=== PATIENT | female | born 1990 | race Caucasian/White ===

== ENCOUNTER 2017-05-11 07:39 | Emergency (ER) | payer MEDICAID, OTHER ==
[2017-05-11 07:39] VITALS: BMI 27.6
[2017-05-11 07:58] VITALS: O2SAT 100
--- NOTE | 2017-05-11 09:08 | C.PDOC ---
History Of Present Illness 27-year-old female, presents to the emergency department with complaints of an allergic reaction. Patient states she has hives diffusely, all over body for the past week. Patient has had similar in the past. Unsure what she is allergic to. Time Seen by Provider: 05/11/17 07:42 Chief Complaint (Nursing): Allergic Reaction History Per: Patient History/Exam Limitations: no limitations Onset/Duration Of Symptoms: Days Current Symptoms Are (Timing): Still Present Associated Symptoms: Skin Rash Home/EMS Treatment: Benadryl Severity: Mild Past Medical History Reviewed: Historical Data, Nursing Documentation, Vital Signs Vital Signs: Last Vital Signs Temp 98.0 F 05/11/17 09:21 Pulse 73 05/11/17 09:21 Resp 18 05/11/17 09:21 BP 105/72 05/11/17 09:21 Pulse Ox 100 05/11/17 09:26 - Medical History PMH: Asthma (childhood), Depression Surgical History: No Surg Hx - [facility] Procedures GROUP PSYCHOTHERAPY (02/29/16) MEDICATION MANAGEMENT (02/29/16) Family History: States: No Known Family Hx - Social History Hx Tobacco Use: No Hx Alcohol Use: No Hx Substance Use: No - Immunization History Hx Tetanus Toxoid Vaccination: No Hx Influenza Vaccination: No Hx Pneumococcal Vaccination: No Review Of Systems Except As Marked, All Systems Reviewed And Found Negative. Constitutional: Negative for: Fever, Chills Skin: Positive for: Rash Physical Exam - Physical Exam Appears: Non-toxic, No Acute Distress Skin: Rash (hives, diffusely.) Head: Atraumatic Eye(s): bilateral: Normal Inspection Nose: Normal Oral Mucosa: Moist Tongue: No Swelling Lips: Normal Appearing Throat: Other (no airway compromise) Neck: Normal ROM Cardiovascular: Rhythm Regular, No Murmur Respiratory: Normal Breath Sounds, No Accessory Muscle Use Extremity: Normal ROM Neurological/Psych: Oriented x3 Gait: Steady ED Course And Treatment O2 Sat by Pulse Oximetry: 100 Progress Note: Treated with benadryl and prednisone. On re-evaluation lungs clear Reassessment Condition: Improved Disposition - Disposition Referrals: [facility] [Outside] [email or web address] [Outside] Disposition: HOME/ ROUTINE Disposition Time: 09:40 Condition: STABLE Prescriptions: Methylprednisolone [Medrol Dose Pack (21 tabs)] 4 mg PO DAILY #21 mg Instructions: Urticaria (ED) Forms: [facility] (Khmer), Work Excuse - POA Present On Arrival: None - Clinical Impression Clinical Impression: Allergic urticaria - Scribe Statement The provider has reviewed the documentation as recorded by the Scribe (Nilo Washington) All medical record entries made by the Scribe were at my direction and personally dictated by me. I have reviewed the chart and agree that the record accurately reflects my personal performance of the history, physical exam, medical decision making, and the department course for this patient. I have also personally directed, reviewed, and agree with the discharge instructions and disposition.
[2017-05-11 09:23] VITALS: BP 105/72; PULSE 73; RESP 18; TEMP 98
== END 2017-05-11 09:30 | disposition home or self-care (01) ==
LOC: C.ER 07:39
DX: L50.0 Allergic urticaria (principal)

== ENCOUNTER 2017-05-27 11:33 | Observation (INO) | payer MEDICAID, OTHER ==
[2017-05-27 11:33] VITALS: BMI 27.6
[2017-05-27] MEDS ORDERED: Sodium Chloride 0.9% 500 ML IV ONE (12:02)
[2017-05-27] MEDS ORDERED: DiphenhydrAMINE 50 mg/ml Inj IVP STA (12:03)
[2017-05-27] MEDS ORDERED: DiphenhydrAMINE 50 mg/ml Inj ONE (12:22)
[2017-05-27 12:24] LABS: BASO % 0.2 % (0.0-2.0); EOS # 0.1 K/uL (0.0-0.7); EOS % 0.6 % (0.0-4.0); HEMATOCRIT 41.1 % (34.0-47.0); LYMPH # 1.2 K/uL (1.0-4.3); LYMPH % 9.6 % (20.0-40.0); MEAN CELL VOLUME 85.7 fL (81.0-99.0); MEAN CORPUSCULAR HEMOGLOBIN 29.3 pg (27.0-31.0); MEAN CORPUSCULAR HGB CONC 34.2 g/dL (33.0-37.0); MEAN PLATELET VOLUME 8.1 fL (7.2-11.7); MONO # 0.8 K/uL (0.0-0.8); MONO % 6.7 % (0.0-10.0); PLATELET COUNT 258 K/uL (130-400); WHITE BLOOD COUNT 12.2 K/uL (4.8-10.8)
--- NOTE | 2017-05-27 12:28 | RAD ---
HISTORY: pain COMPARISON: Chest x-ray performed 02/29/16 TECHNIQUE: Chest PA and lateral FINDINGS: LUNGS: No focal consolidation. Please note that chest x-ray has limited sensitivity for the detection of pulmonary masses. PLEURA: No significant pleural effusion identified. No definite pneumothorax . CARDIOVASCULAR: The cardiomediastinal silhouette appears within normal limits of size. OSSEOUS STRUCTURES: No acute osseous abnormality identified. VISUALIZED UPPER ABDOMEN: Unremarkable. OTHER FINDINGS: None. IMPRESSION: No focal consolidation, significant pleural effusion, or definite pneumothorax identified.
[2017-05-27 12:31] LABS: CHLORIDE 99 mmol/L (98-107); POTASSIUM 3.2 mmol/L (3.6-5.2); RBC URINE 6 /hpf (0-3); SODIUM 140 mmol/L (132-148); URINE BACTERIA RARE (<OCC); URINE BILIRUBIN NEGATIVE (NEGATIVE); URINE BLOOD NEGATIVE (NEGATIVE); URINE COLOR Yellow (YELLOW); URINE GLUCOSE (UA) NORMAL (Normal); URINE KETONE NEGATIVE (NEGATIVE); URINE LEUKOCYTE ESTERASE 3+ Leu/uL (Negative); URINE PROTEIN NEGATIVE (NEGATIVE); URINE UROBILINOGEN NORMAL mg/dL (0.2-1.0); WBC URINE 14 /hpf (0-5)
[2017-05-27 12:34] LABS: ALCOHOL SERUM < 10 mg/dl (0-10); BLOOD UREA NITROGEN 16 mg/dL (7-17); CARBON DIOXIDE 31 mmol/L (22-30); GFR AFRICAN-AMERICAN > 60
[2017-05-27 12:35] LABS: CALCIUM 9.7 mg/dl (8.6-10.4); GLUCOSE,RANDOM 73 mg/dL (65-105)
--- NOTE | 2017-05-27 12:44 | C.PDOC ---
History Of Present Illness 27 yo female w/PMHx of depression, BIBA for evaluation of chest tightness associated with SOB gradually developed few hours ago, while at work. Pt admits , had similar sx in past. Pt sts, " had major episode of depression with suicidal ideation and was admitted". Pt admits, not compliant with psych medication. Pt also reports, was experiencing intermittent nbody rash, itchy for past few weeks. Otherwise, pt denies fever, chills, headache, dizziness, visual changes, focal deficits, throat swelling or tightness, CP, dyspnea, wheezing, abd. pain, V/D, UTI sx. At the time of evaluation, pt appears depressed, crying. 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 ) Past Medical History Reviewed: Historical Data, Nursing Documentation, Vital Signs Vital Signs: Last Vital Signs Temp 98.4 F 05/27/17 15:50 Pulse 95 H 05/27/17 15:50 Resp 18 05/27/17 15:50 BP 136/89 05/27/17 15:50 Pulse Ox 99 05/27/17 15:50 - Medical History PMH: Asthma (childhood), Depression - [facility] Procedures GROUP PSYCHOTHERAPY (02/29/16) MEDICATION MANAGEMENT (02/29/16) Family History: States: No Known Family Hx - Social History Hx Tobacco Use: No Hx Alcohol Use: Yes Hx Substance Use: No - Immunization History Hx Tetanus Toxoid Vaccination: No Hx Influenza Vaccination: No Hx Pneumococcal Vaccination: No Review Of Systems Except As Marked, All Systems Reviewed And Found Negative. Constitutional: Negative for: Fever, Chills Eyes: Negative for: Vision Change ENT: Negative for: Throat Swelling Cardiovascular: Positive for: Other ((+) Chest tightness. ). Negative for: Chest Pain Respiratory: Positive for: Shortness of Breath. Negative for: Wheezing Gastrointestinal: Negative for: Nausea, Vomiting, Abdominal Pain Neurological: Negative for: Headache, Dizziness Physical Exam - Physical Exam Appears: Well, Non-toxic, No Acute Distress Skin: Warm, Dry, Rash (scattered urticaria to trunk.), No Ecchymosis Eye(s): bilateral: PERRL Ear(s): Bilateral: Normal Nose: No Flaring, No Discharge Oral Mucosa: Moist, No Drooling, No Trismus Throat: Normal, No Erythema, No Exudate, No Drooling, Other (Uvula midline, no edema) Neck: Supple Cardiovascular: Rhythm Regular, No JVD ((-) carotid bruits) Respiratory: No Decreased Breath Sounds, No Accessory Muscle Use, No Stridor, No Wheezing Gastrointestinal/Abdominal: Soft, No Tenderness, No Distention, No Guarding Back: No CVA Tenderness, No Vertebral Tenderness, No Paraspinal Tenderness Extremity: Normal ROM, No Tenderness, No Pedal Edema, No Deformity Neurological/Psych: Oriented x3, Normal Speech, Normal Motor, Normal Sensation, Normal Reflexes ED Course And Treatment - Laboratory Results Result Diagrams: 05/27/17 12:19 05/27/17 12:19 Lab Interpretation: Normal Urine POC: Negative ECG: Interpreted By Me, Viewed By Me ECG Rhythm: Sinus Rhythm ECG Interpretation: Normal Interpretation Of ECG: SR@82/min, NAD, no acute T wave or ST-T changes. Rate From EC (BPM) O2 Sat by Pulse Oximetry: 100 (RA ) Pulse Ox Interpretation: Normal - Radiology CXR: Viewed By Me, Read By Radiologist CXR Interpretation: Yes: No Acute Disease Medical Decision Making Medical Decision Making: PLAN: * CXR * EKG * Alcohol Serum * Drug Screen * HCG * Urinalysis * Benadryl IVP * Pepcid IVP * Solumedrol IV * Sodium Chloride IV ED OBSERVATION Discharge: Yes Date of observation admission: 05/27/17 Time of observation admission: 11:55 - Observation admission statement Patient is being placed in observation because:: CP, SOB r/o anxiety, depression - Goals of Observation Goals of observation are:: Diagnostics, tx, re-evaluation. - Progress Note Progress Note: 05/27/17 At 13:48, pt resting comfortably in bed, not in any apparent distress. Afebrile, heodynamicaly stable. neurologicaly intact. Blood work review and appears normal. UA results c/w UTI. Ucx-pending Antibiotic given. Pt is medically cleared for PES evaluation/tx/transfer as need. At 14:20, pt resting comfortably, not in any apparent distress. Appears appropriate, smiling. PES saw patient, will discussed with psychiatrist. At 15:20, pt appears depressed again, crying. PES re-evaluated pt and recommend "RX: Xanax for 2 days until will be seen by psychiatrist". Pt received one dose of xanax here in ED. On re-evaluation, pt is more appropriate, sts, " I get upset when start to think about something that upset me". Afebrile, hemodynamicaly stable. CVS: (+)S1S2, reg. Pt denies suicidal or homocidal ideation. Pt is stable for discharge and outpt f/u as scheduled in 2 days with . 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 - Scribe Statement The provider has reviewed the documentation as recorded by the Scribe Jazmyn Adame All medical record entries made by the Johnibwalker were at my direction and personally dictated by me. I have reviewed the chart and agree that the record accurately reflects my personal performance of the history, physical exam, medical decision making, and the department course for this patient. I have also personally directed, reviewed, and agree with the discharge instructions and disposition.
[2017-05-27 13:35] LABS: NEUTROPHIL 85 % (50-75); REACTIVE LYMPHOCYTES 1 % (0-0); TOTAL CELLS COUNTED 100
[2017-05-27 15:55] VITALS: BP 136/89; PULSE 95; RESP 18; TEMP 98.4
[2017-05-28 09:35] VITALS: O2SAT 100
--- NOTE | 2017-05-31 16:05 | CARD ---
APPROVED REPORT EKG Measurement Heart [id number] <Conclusion> Normal sinus rhythm Normal ECG
== END 2017-05-27 15:15 | disposition home or self-care (01) ==
LOC: C.ER 11:33 → C.9OBSV 11:55
PROVIDERS: ADMIT Emergency Medicine; ATTEND Emergency Medicine
DX: L50.9 Urticaria, unspecified (principal); N39.0 Urinary tract infection, site not specified; F32.9 Major depressive disorder, single episode, unspecified; F41.9 Anxiety disorder, unspecified; J45.909 Unspecified asthma, uncomplicated
CPT/HCPCS: 71020; 80048; 80320; 80324; 80345; 80346; 80349; 80353; 80358; 80361; 81001; 83992; 85025; 87086; 96360; 96374; G0378; J1200; J2930; J7040

== ENCOUNTER 2018-02-01 16:09 | Emergency (ER) | payer MEDICAID ==
[2018-02-01 16:09] VITALS: BMI 27.6
[2018-02-01] MEDS ORDERED: Sodium Chloride 0.9% 1,000 ML ONE (17:06)
[2018-02-01] MEDS ORDERED: cefTRIAXone IV 1 gm in Dextros 50 ML IVPB ONE (17:06)
[2018-02-01 17:58] VITALS: BP 123/86; PULSE 78; RESP 18; TEMP 98; O2SAT 98
--- NOTE | 2018-02-01 18:32 | C.PDOC ---
History Of Present Illness 28 year old female presents to the ED for evaluation of a bug bite which she sustained to her left forearm last night. Patient notes increased redness and swelling to her left hand and some redness to her left forearm. 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 Time Seen by Provider: 02/01/18 16:30 Chief Complaint (Nursing): Finger,Hand,&Wrist History Per: Patient History/Exam Limitations: no limitations Onset/Duration Of Symptoms: Hrs Current Symptoms Are (Timing): Still Present Additional History Per: Patient Past Medical History Reviewed: Historical Data, Nursing Documentation, Vital Signs Vital Signs: Last Vital Signs Temp 98 F 02/01/18 17:58 Pulse 78 02/01/18 17:58 Resp 18 02/01/18 17:58 BP 123/86 02/01/18 17:58 Pulse Ox 98 02/01/18 18:53 - Medical History PMH: Asthma (childhood), Depression Denies: Diabetes, Hepatitis, HIV, HTN, Chronic Kidney Disease, Seizures, Sexually Transmitted Disease Surgical History: No Surg Hx - [facility] Procedures GROUP PSYCHOTHERAPY (02/29/16) MEDICATION MANAGEMENT (02/29/16) Family History: States: Unknown Family Hx - Social History Hx Tobacco Use: No Hx Alcohol Use: Yes Hx Substance Use: No - Immunization History Hx Tetanus Toxoid Vaccination: No Hx Influenza Vaccination: No Hx Pneumococcal Vaccination: No Review Of Systems Constitutional: Negative for: Fever, Chills Skin: Positive for: Other (bug bite to left hand ) Physical Exam - Physical Exam Appears: Non-toxic, No Acute Distress Skin: Warm, Dry Extremity: Normal ROM, Capillary Refill (less than 2 seconds ), Other (erythema and swelling to dorsal aspect of left hand with some streaking to left forearm ) Pulses: Left Radial: Normal Neurological/Psych: Oriented x3, Normal Speech, Normal Cognition, Normal Sensation ED Course And Treatment O2 Sat by Pulse Oximetry: 98 (on RA) Pulse Ox Interpretation: Normal Medical Decision Making Medical Decision Making: Impression: 28 year old female with erythema and swelling to left hand Plan: * Rocephin IVP * Toradol IVP * reassess and disposition Progress: Rocephin IVP and Toradol IVP administered. On reassessment, patient is resting comfortably, showing no signs of distress and is stable for discharge. Patient is advised to f/u with her PMD within 1-2 days for further evaluation and/or return to the ED if symptoms persist or worsen. Disposition - Disposition Referrals: Georgina Hendricks, [Non-Staff] - Disposition: HOME/ ROUTINE Disposition Time: 17:15 Condition: GOOD Additional Instructions: Thank you for letting us take care of you today. The emergency medical care you received today was directed at your acute symptoms. If you were prescribed any medication, please fill it and take as directed. It may take several days for your symptoms to resolve. Return to the Emergency Department if your symptoms worsen, do not improve, or if you have any other problems. Please contact your doctor or call one of the physicians/clinics you have been referred to that are listed on the Patient Visit Information form that is included in your discharge packet. Bring any paperwork you were given at discharge with you along with any medications you are taking to your follow up visit. Our treatment cannot replace ongoing medical care by a primary care provider (PCP) outside of the emergency department. Thank you for allowing the [facility] team to be part of your care today. Monitor the redness to your arm and return to the emergency room if it becomes any larger. Follow up with your primary doctor in 2-3 days for re-evaluation and further management. Prescriptions: Amoxicillin/Clavulanate [Augmentin 875 MG-125 MG] 1 tab PO BID #20 tab Ibuprofen [Motrin] 600 mg PO Q6 PRN #20 tab PRN Reason: Pain, Moderate (4-7) Instructions: Cellulitis (Skin Infection), Child (DC) Forms: [employer] (Nepali) - Clinical Impression Clinical Impression: Cellulitis - Scribe Statement The provider has reviewed the documentation as recorded by the Scribe (Josefa Sarkar) Provider Attestation: All medical record entries made by the Scribe were at my direction and personally dictated by me. I have reviewed the chart and agree that the record accurately reflects my personal performance of the history, physical exam, medical decision making, and the department course for this patient. I have also personally directed, reviewed, and agree with the discharge instructions and disposition.
== END 2018-02-01 17:58 | disposition home or self-care (01) ==
LOC: C.ER 16:09
DX: L03.114 Cellulitis of left upper limb (principal)
CPT/HCPCS: 96374; 96375; 99284; J0696; J1885

== ENCOUNTER 2018-03-11 10:44 | Emergency (ER) | payer OTHER ==
[2018-03-11 10:45] VITALS: BMI 27.6
[2018-03-11 11:20] VITALS: RESP 16
--- NOTE | 2018-03-11 11:43 | C.PDOC ---
History Of Present Illness 28 y/o female presents to the ED for evaluation of pelvic pain which began 3 days ago. Patient states she found out she was three days ago, was evaluated by her PUBLIC SAFETY DISPATCHER and had a negative urinalysis. Patient describes her pain as a cramping sensation, similar to what she feels when she has her period. She also notes that the pain radiates into her back. As advised by her PUBLIC SAFETY DISPATCHER, patient presents to the ED for evaluation because her pain has been worsening. She denies fever, chills, vaginal bleeding, vaginal discharge. Time Seen by Provider: 03/11/18 11:12 Chief Complaint (Nursing): Abdominal Pain History Per: Patient History/Exam Limitations: no limitations Onset/Duration Of Symptoms: Days (3) Current Symptoms Are (Timing): Worse Location Of Pain/Discomfort: Other (pelvic) Radiation Of Pain To:: Back Quality Of Discomfort: Cramping, "Pain" Associated Symptoms: denies: Fever, Chills Additional History Per: Patient Abnormal Vaginal Bleeding: No : 1 Para: 0 Past Medical History Reviewed: Historical Data, Nursing Documentation, Vital Signs Vital Signs: Last Vital Signs Temp 98.1 F 03/11/18 14:17 Pulse 88 03/11/18 14:17 Resp 16 03/11/18 14:17 BP 107/71 03/11/18 14:17 Pulse Ox 100 03/11/18 14:17 - Medical History PMH: Asthma (childhood), Depression Denies: Diabetes, Hepatitis, HIV, HTN, Chronic Kidney Disease, Seizures, Sexually Transmitted Disease Surgical History: No Surg Hx - [facility] Procedures GROUP PSYCHOTHERAPY (02/29/16) MEDICATION MANAGEMENT (02/29/16) Family History: States: Unknown Family Hx - Social History Hx Tobacco Use: No Hx Alcohol Use: No Hx Substance Use: No - Immunization History Hx Tetanus Toxoid Vaccination: No Hx Influenza Vaccination: No Hx Pneumococcal Vaccination: No Review Of Systems Except As Marked, All Systems Reviewed And Found Negative. Constitutional: Negative for: Fever, Chills Genitourinary: Positive for: Pelvic Pain. Negative for: Vaginal Discharge, Vaginal Bleeding Musculoskeletal: Positive for: Back Pain Physical Exam - Physical Exam Appears: Non-toxic, No Acute Distress Skin: Normal Color, Warm, Dry Head: Atraumatic, Normacephalic Eye(s): bilateral: Normal Inspection, EOMI Nose: Normal Oral Mucosa: Moist Neck: Normal ROM, Supple Chest: Symmetrical, No Deformity, No Tenderness Cardiovascular: Rhythm Regular Respiratory: Normal Breath Sounds, No Rales, No Rhonchi, No Wheezing Gastrointestinal/Abdominal: Soft, Tenderness (suprapubic ), No Guarding, No Rebound Back: No CVA Tenderness, No Vertebral Tenderness, Paraspinal Tenderness (lumbar ) Extremity: Normal ROM, Capillary Refill (less than 2 seconds ) Neurological/Psych: Oriented x3, Normal Speech, Normal Cognition Gait: Steady ED Course And Treatment - Laboratory Results Result Diagrams: 03/11/18 11:47 03/11/18 11:47 O2 Sat by Pulse Oximetry: 99 (on RA) Pulse Ox Interpretation: Normal - CT Scan/US Pelvic US Other Rad Studies (CT/US): Read By Radiologist, Radiology Report Reviewed CT/US Interpretation: Accession No. : [id number]. Patient Name / ID : CARLI SOTO / [id number]. Exam Date : 03/11/2018 13:00:25 ( Approved ). Study Comment : Sex / Age : F / 28Y. Creator : El Bell MD. Dictator : El Bell MD. Casino Floor Person : Auto Job Estimator : El Bell MD. Approver2 : Report Date : 03/11/2018 15:03:01. My Comment : . PROCEDURE: OB Pelvic Ultrasound. HISTORY: pain. LMP: 01/14/2018 suggesting estimated gestational age of 8 weeks 0 days. COMPARISON: None available. FINDINGS: UTERUS: Uterus is anteverted and measures 8.5 x 4.1 x 4.6 cm with nonfocal myometrium and a gestational sac identified within the intracavity including a yolk sac. No pole identified ordered an and membrane. Mean sac diameter is 1.0 cm and the yolk sac measures 0.2 cm. The mean sac diameter suggests an estimated gestational age of 6 weeks 0 days. A pole usually is identified at this stage of gestation. This not excluded a viable intrauterine gestation nevertheless. There gestation is including the diagnosis as well as nonvisualized pole in a viable IUP at this time. No direct evidence of ectopic gestation at this time. No definite decidual hemorrhage appreciable at this time. CERVIX: Measures 3.7 cm. Long and closed. No cervical abnormality seen. RIGHT OVARY: Measures 4.3 x 2 x 4.1 cm. Corpus luteum cyst likely is identified measure 2.3 cm greatest dimension. Normal flow. LEFT OVARY: Measures 3.4 x 1.8 x 2.3 cm. No solid mass. Normal flow. FREE FLUID: Mild fluid and debris are seen in the cul-de-sac. OTHER FINDINGS: None. IMPRESSION: In intrauterine gestation is identified within the endometrial cavity manifest by a gestational sac containing yolk sac but no pole at this time. Mean sac diameter of 1 cm suggest 6 weeks gestation which should normally contain a pole. This raises question of possible failure of gestation though a single viable intrauterine gestation is not excluded nevertheless. No decidual hemorrhage is appreciated at this time. Correlation with serial serum beta HCG analysis is advised and follow-up sonography are advised. Likely right corpus luteum cyst. Cul-de-sac fluid and debris are identified and a very small volume. Progress Note: Bloodwork, urinalysis, transvaginal ultrasound ordered and reviewed. Tylenol PO administered. Pt was given work up results and instructed to follow up with in 2 days for repeat evaluation and BetaHcg. Instructed to return to ER if symtpoms persist or worsen. Disposition - Disposition Disposition: HOME/ ROUTINE Disposition Time: 16:00 Condition: STABLE Additional Instructions: Follow up in 2 days for repeat labs and re-evaluation. Return to ER if symptoms persist or worsen. Instructions: Threatened Miscarriage (DC) Forms: [email or web address] (Greek) - Clinical Impression Clinical Impression: Threatened - PA / SUPERVISOR TWISTING DEPARTMENT / Resident Statement MD/DO has reviewed & agrees with the documentation as recorded. - Scribe Statement The provider has reviewed the documentation as recorded by the Scribe (Josefa Sarkar) All medical record entries made by the Scribe were at my direction and personally dictated by me. I have reviewed the chart and agree that the record accurately reflects my personal performance of the history, physical exam, medical decision making, and the department course for this patient. I have also personally directed, reviewed, and agree with the discharge instructions and disposition.
[2018-03-11 12:04] LABS: BASO % 0.4 % (0.0-2.0); EOS # 0.1 K/uL (0.0-0.7); EOS % 1.7 % (0.0-4.0); HEMOGLOBIN 13.3 g/dL (11.0-16.0); LYMPH # 1.3 K/uL (1.0-4.3); LYMPH % 20.2 % (20.0-40.0); MEAN CELL VOLUME 86.7 fL (81.0-99.0); MEAN CORPUSCULAR HEMOGLOBIN 30.1 pg (27.0-31.0); MEAN CORPUSCULAR HGB CONC 34.7 g/dL (33.0-37.0); MEAN PLATELET VOLUME 8.3 fL (7.2-11.7); MONO # 0.6 K/uL (0.0-0.8); MONO % 9.8 % (0.0-10.0); NEUT # 4.3 K/uL (1.8-7.0); NEUT % 67.9 % (50.0-75.0); NRBC % 0.1 % (0.0-2.0); RBC 4.41 Mil/uL (3.80-5.20); RED CELL DISTRIBUTION WIDTH 12.8 % (11.5-14.5); WHITE BLOOD COUNT 6.4 K/uL (4.8-10.8)
[2018-03-11 12:20] LABS: ALB/GLOB RATIO 1.2 (1.0-2.1); ALBUMIN 3.9 g/dL (3.5-5.0); ALT/SGPT 39 U/L (9-52); AST/SGOT 42 U/L (14-36); BLOOD UREA NITROGEN 10 mg/dL (7-17); GFR AFRICAN-AMERICAN > 60; GFR NON-AFRICAN AMERICAN > 60
[2018-03-11] MEDS ORDERED: Sodium Chloride 0.9% 1,000 ML IV ONE (12:36)
[2018-03-11 12:53] LABS: HCG,QUALITATIVE URINE POSITIVE (NEGATIVE)
[2018-03-11 12:57] LABS: SQUAMOUS EPITHIAL 6 /hpf (0-5); URINE BACTERIA RARE (<OCC); URINE BILIRUBIN NEGATIVE (NEGATIVE); URINE BLOOD NEGATIVE (NEGATIVE); URINE CLARITY Hazy (Clear); URINE COLOR Yellow (YELLOW); URINE GLUCOSE (UA) NORMAL (Normal); URINE LEUKOCYTE ESTERASE TRACE Leu/uL (Negative); URINE PROTEIN NEGATIVE (NEGATIVE); URINE UROBILINOGEN NORMAL mg/dL (0.2-1.0)
[2018-03-11 14:18] VITALS: BP 107/71; PULSE 88; TEMP 98.1
--- NOTE | 2018-03-11 15:04 | US ---
PROCEDURE: OB Pelvic Ultrasound HISTORY: pain LMP: 01/14/2018 suggesting estimated gestational age of 8 weeks 0 days. COMPARISON: None available. FINDINGS: UTERUS: Uterus is anteverted and measures 8.5 x 4.1 x 4.6 cm with nonfocal myometrium and a gestational sac identified within the intracavity including a yolk sac. No pole identified ordered an and membrane. Mean sac diameter is 1.0 cm and the yolk sac measures 0.2 cm. The mean sac diameter suggests an estimated gestational age of 6 weeks 0 days. A pole usually is identified at this stage of gestation. This not excluded a viable intrauterine gestation nevertheless. There gestation is including the diagnosis as well as nonvisualized pole in a viable IUP at this time. No direct evidence of ectopic gestation at this time. No definite decidual hemorrhage appreciable at this time. CERVIX: Measures 3.7 cm. Long and closed. No cervical abnormality seen. RIGHT OVARY: Measures 4.3 x 2 x 4.1 cm. Corpus luteum cyst likely is identified measure 2.3 cm greatest dimension. Normal flow. LEFT OVARY: Measures 3.4 x 1.8 x 2.3 cm. No solid mass. Normal flow. FREE FLUID: Mild fluid and debris are seen in the cul-de-sac. OTHER FINDINGS: None. IMPRESSION: In intrauterine gestation is identified within the endometrial cavity manifest by a gestational sac containing yolk sac but no pole at this time. Mean sac diameter of 1 cm suggest 6 weeks gestation which should normally contain a pole. This raises question of possible failure of gestation though a single viable intrauterine gestation is not excluded nevertheless. No decidual hemorrhage is appreciated at this time. Correlation with serial serum beta HCG analysis is advised and follow-up sonography are advised. Likely right corpus luteum cyst. Cul-de-sac fluid and debris are identified and a very small volume.
[2018-03-13 00:18] VITALS: O2SAT 99
== END 2018-03-11 15:20 | disposition home or self-care (01) ==
LOC: C.ER 10:44
DX: O20.0 Threatened abortion (principal); Z3A.01 Less than 8 weeks gestation of pregnancy
CPT/HCPCS: 76805; 76817; 80053; 81001; 84702; 84703; 85025; 87086; 96360; 99284; J7030

== ENCOUNTER 2018-03-13 13:25 | Emergency (ER) | payer OTHER ==
[2018-03-13 13:25] VITALS: BMI 27.6
[2018-03-13 13:35] VITALS: RESP 18; TEMP 98.6
--- NOTE | 2018-03-13 14:26 | C.PDOC ---
History Of Present Illness 28-year-old female, presents to the emergency department requesting a repeat beta quant. Patient states she developed abdominal pain five days ago, and found out she was . states she was seen in ER two days ago and had an ultrasound and blood work, instructed to return for repeat beta quant. Time Seen by Provider: 03/13/18 13:39 Chief Complaint (Nursing): Medical Clearance History Per: Patient Onset/Duration Of Symptoms: Waxing/Waning Past Medical History Reviewed: Historical Data, Nursing Documentation, Vital Signs Vital Signs: Last Vital Signs Temp 98.6 F 03/13/18 13:33 Pulse 68 03/13/18 16:01 Resp 18 03/13/18 16:01 BP 104/72 03/13/18 16:01 Pulse Ox 97 03/13/18 16:01 - Medical History PMH: Asthma (childhood), Depression - [facility] Procedures GROUP PSYCHOTHERAPY (02/29/16) MEDICATION MANAGEMENT (02/29/16) Family History: States: No Known Family Hx - Social History Hx Tobacco Use: No Hx Alcohol Use: No Hx Substance Use: No - Immunization History Hx Tetanus Toxoid Vaccination: No Hx Influenza Vaccination: No Hx Pneumococcal Vaccination: No Review Of Systems Constitutional: Negative for: Fever Respiratory: Negative for: Shortness of Breath Gastrointestinal: Negative for: Vomiting, Abdominal Pain Genitourinary: Negative for: Vaginal Discharge, Vaginal Bleeding Neurological: Negative for: Weakness, Numbness, Headache, Dizziness Physical Exam - Physical Exam Appears: Non-toxic, No Acute Distress Skin: Normal Color, Warm, Dry, No Rash Head: Atraumatic Eye(s): bilateral: Normal Inspection Nose: Normal Oral Mucosa: Moist Lips: Normal Appearing Neck: Normal ROM Cardiovascular: Rhythm Regular Respiratory: Normal Breath Sounds, No Accessory Muscle Use Gastrointestinal/Abdominal: Soft, No Tenderness Extremity: Normal ROM, No Deformity, No Swelling Neurological/Psych: Oriented x3, Normal Speech ED Course And Treatment O2 Sat by Pulse Oximetry: 99 (RA) Pulse Ox Interpretation: Normal Medical Decision Making Medical Decision Making: Prior Visits: Notes and records from previous visits were reviewed. Patient had a beta quant of 8288.10. She had an ultrasound which showed: intrauterine gestation is identified within the endometrial cavity manifest by a gestational sac containing yolk sac but no pole at this time. Mean sac diameter of 1 cm suggest 6 weeks gestation which should normally contain a pole. This raises question of possible failure of gestation though a single viable intrauterine gestation is not excluded nevertheless. No decidual hemorrhage is appreciated at this time. Likely right corpus luteum cyst. Cul-de-sac fluid and debris are identified and a very small volume. Disposition Counseled Patient/Family Regarding: Studies Performed, Diagnosis, Need For Followup - Disposition Referrals: [facility] [Outside] Disposition: HOME/ ROUTINE Disposition Time: 16:05 Condition: STABLE Additional Instructions: FOLLOW UP WITH YOUR RADIO [facility]OADCASTER WITHIN 1 WEEK USE TYLENOL NEEDED FOR PAIN RETURN TO ER IF SYMPTOMS WORSEN Instructions: Acute Pelvic Pain (DC) Forms: [employer] (Scottish) Print Language: JAPANESE - POA Present On Arrival: None - Clinical Impression Clinical Impression: Pelvic pain affecting - Scribe Statement The provider has reviewed the documentation as recorded by the Scribe (Nilo Washington) All medical record entries made by the Scribe were at my direction and personally dictated by me. I have reviewed the chart and agree that the record accurately reflects my personal performance of the history, physical exam, medical decision making, and the department course for this patient. I have also personally directed, reviewed, and agree with the discharge instructions and disposition.
--- NOTE | 2018-03-13 15:46 | US ---
PROCEDURE: OB Pelvic Ultrasound HISTORY: WORSENING PELVIC PAIN COMPARISON: None available. FINDINGS: UTERUS: Single intrauterine gestational sac. pole is not visualized on the current examination. Gestational sac diameter measures 1.02 cm equivalent to 5 weeks and 0 day gestation. Yolk sac is visualized. age (Ultrasound estimated): 5 weeks and 0 day Date of delivery (Ultrasound estimated) : 11/13/2018 . Adwoa-gestational hemorrhage: None. Uterus measures 8.1 x 4.2 x 4.7 cm. CERVIX: Long and closed. No cervical abnormality seen. FREE FLUID: None. OTHER FINDINGS: None. RIGHT OVARY: Measures 6.6 x 3.0 x 3.6 cm. No solid mass. Normal flow. There is a 2.5 x 1.9 x 2.4 cm corpus luteum cyst. LEFT OVARY: Measures 2.4 x 1.6 x 2.4 cm. No solid mass. Normal flow. IMPRESSION: Single intrauterine gestation with mean gestational age of 5 weeks and 0 day. Yolk sac is visualized however no pole is identified on the current examination which is likely related to early gestation. Estimated date of delivery by ultrasound is 11/13/2018. Clinical follow-up is advised.
[2018-03-13 16:01] VITALS: BP 104/72; PULSE 68
[2018-03-13 16:06] VITALS: O2SAT 99
== END 2018-03-13 16:15 | disposition home or self-care (01) ==
LOC: C.ER 13:25
DX: O26.891 Other specified pregnancy related conditions, first trimester (principal); R10.2 Pelvic and perineal pain; Z3A.01 Less than 8 weeks gestation of pregnancy

== ENCOUNTER 2018-04-06 21:38 | Inpatient (IN) | payer OTHER, MEDICAID ==
[2018-04-06 21:38] VITALS: BMI 27.6
[2018-04-06 22:19] LABS: BASO % 0.4 % (0.0-2.0); EOS # 0.1 K/uL (0.0-0.7); EOS % 1.1 % (0.0-4.0); LYMPH # 1.5 K/uL (1.0-4.3); LYMPH % 19.6 % (20.0-40.0); MEAN CORPUSCULAR HEMOGLOBIN 28.9 pg (27.0-31.0); MEAN PLATELET VOLUME 8.1 fL (7.2-11.7); MONO # 0.5 K/uL (0.0-0.8); MONO % 6.2 % (0.0-10.0); NEUT # 5.7 K/uL (1.8-7.0); NEUT % 72.7 % (50.0-75.0); NRBC % 0.1 % (0.0-2.0); RBC 5.19 Mil/uL (3.80-5.20); RED CELL DISTRIBUTION WIDTH 12.8 % (11.5-14.5); WHITE BLOOD COUNT 7.9 K/uL (4.8-10.8)
[2018-04-06 22:22] LABS: HCG,QUALITATIVE URINE NEGATIVE (NEGATIVE); URINE BILIRUBIN NEGATIVE (NEGATIVE); URINE BLOOD NEGATIVE (NEGATIVE); URINE CLARITY Clear (Clear); URINE COLOR Straw (YELLOW); URINE GLUCOSE (UA) NORMAL (Normal); URINE LEUKOCYTE ESTERASE NEG Leu/uL (Negative); URINE PROTEIN NEGATIVE (NEGATIVE); URINE UROBILINOGEN NORMAL mg/dL (0.2-1.0)
--- NOTE | 2018-04-06 22:30 | C.PDOC ---
History Of Present Illness 28 year old female is brought to the ED by EMS with xanax overdose. Patient reports taking 5 xanax in an attempt to kill herself. Patient states she recently had a miscarriage. Patient states she has been feeling depressed, patient is drowsy further HPI and ROS are unobtainable. Friend at bedside reports she got a text for the patient asking her to bring the patient to the ED because she was feeling suicidal. Time Seen by Provider: 04/06/18 21:59 Chief Complaint (Nursing): Substance Abuse History Per: Patient, EMS, Other (Friend) History/Exam Limitations: clinical condition Onset/Duration Of Symptoms: Hrs Current Symptoms Are (Timing): Still Present Suicide/Self Injury Attempted (Context): Ingestion Modifying Factor(s): Other (Xanax) Associated Symptoms: Depression, Suicidal Thoughts, Suicidal Plan Involuntary Hold By: None Recent travel outside of the [place]: No Additional History Per: Patient, EMS, Friend Past Medical History Reviewed: Historical Data, Nursing Documentation, Vital Signs Vital Signs: Last Vital Signs Temp 98.2 F 04/06/18 21:58 Pulse 103 H 04/06/18 21:58 Resp 17 04/06/18 21:58 BP 128/85 04/06/18 21:58 Pulse Ox 97 04/06/18 22:33 - Medical History PMH: Asthma (childhood), Depression Denies: HIV, HTN, Chronic Kidney Disease, Seizures, Sexually Transmitted Disease Surgical History: No Surg Hx - [facility] Procedures GROUP PSYCHOTHERAPY (02/29/16) MEDICATION MANAGEMENT (02/29/16) Family History: States: Unknown Family Hx - Social History Hx Tobacco Use: No Hx Alcohol Use: No Hx Substance Use: No - Immunization History Hx Tetanus Toxoid Vaccination: No Hx Influenza Vaccination: No Hx Pneumococcal Vaccination: No Review Of Systems Except As Marked, All Systems Reviewed And Found Negative. Psych: Positive for: Depression, Suicidal ideation Physical Exam - Physical Exam Additional Physical Exam Comments: Constitutional: No acute distress. Drowsy easily arousable Head: Normocephalic. Atraumatic. Eyes: PERRL. ENT: Moist mucous membranes. Neck: Supple. Cardiovascular: Regular rate. Radial pulse 2+ bilaterally. Chest: No tenderness. Respiratory: Clear to auscultation bilaterally. GI: Soft. Nontender. Nondistended. Back: No CVA tenderness. Musculoskeletal: No tenderness or swelling of extremities. Skin: No rash. Neurologic: Alert, no focal deficit. Drowsy, easily arousable ED Course And Treatment - Laboratory Results Result Diagrams: 04/06/18 22:16 04/06/18 22:16 O2 Sat by Pulse Oximetry: 97 (ON RA) Pulse Ox Interpretation: Normal Medical Decision Making Medical Decision Making: Impression: Overdose Plan: * Labs * 1:1 Obs * UA Dr. Rubio accepts to her service with psych consult. Disposition - Disposition Disposition: HOSPITALIZED Disposition Time: 00:31 Condition: FAIR Forms: [facility] (Angolan) - Clinical Impression Clinical Impression: Benzodiazepine overdose - Scribe Statement The provider has reviewed the documentation as recorded by the Scribe Gordon Hall All medical record entries made by the Scribe were at my direction and personally dictated by me. I have reviewed the chart and agree that the record accurately reflects my personal performance of the history, physical exam, medical decision making, and the department course for this patient. I have also personally directed, reviewed, and agree with the discharge instructions and disposition.
[2018-04-06 22:31] LABS: ACETAMINOPHEN < 10.0 ug/mL (10.0-30.0); SALICYLATE < 1.0 mg/dL 1
[2018-04-06 22:34] LABS: ALB/GLOB RATIO 1.4 (1.0-2.1); ALBUMIN 4.9 g/dL (3.5-5.0); ALT/SGPT 28 U/L (9-52); AST/SGOT 30 U/L (14-36); BLOOD UREA NITROGEN 8 mg/dL (7-17); CALCIUM 9.4 mg/dl (8.6-10.4); GFR AFRICAN-AMERICAN > 60; GFR NON-AFRICAN AMERICAN > 60
[2018-04-06 22:39] LABS: BARBITURATES, UR NEGATIVE (NEGATIVE); OPIATES, UR NEGATIVE (NEGATIVE); PHENCYCLIDINE, UR NEGATIVE (NEGATIVE)
[2018-04-06 22:43] LABS: BENZODIAZEPINES, UR POSITIVE (NEGATIVE)
--- NOTE | 2018-04-07 09:09 | RAD ---
HISTORY: suicide attempt COMPARISON: 05/27/2017 FINDINGS: LUNGS: No active pulmonary disease. PLEURA: No significant pleural effusion identified, no pneumothorax apparent. CARDIOVASCULAR: Normal. OSSEOUS STRUCTURES: No significant abnormalities. VISUALIZED UPPER ABDOMEN: Normal. OTHER FINDINGS: None. IMPRESSION: No active disease.
[2018-04-07] MEDS: Sodium Chloride 0.9% 1,000 ML IV SCH (10:50)
[2018-04-08 06:50] LABS: HEMOGLOBIN 12.3 g/dL (11.0-16.0); MEAN CELL VOLUME 85.6 fL (81.0-99.0); MEAN CORPUSCULAR HEMOGLOBIN 28.9 pg (27.0-31.0); MEAN CORPUSCULAR HGB CONC 33.8 g/dL (33.0-37.0); MEAN PLATELET VOLUME 8.4 fL (7.2-11.7); RBC 4.25 Mil/uL (3.80-5.20); RED CELL DISTRIBUTION WIDTH 12.9 % (11.5-14.5); WHITE BLOOD COUNT 6.5 K/uL (4.8-10.8)
[2018-04-08 07:23] LABS: IRON 29 ug/dL (37-170)
[2018-04-08 07:34] LABS: % IRON SATURATION 10 (20-55); TOTAL IRON BINDING CAPACITY 294 ug/dL (250-450)
[2018-04-08 07:44] LABS: LDL CHOLESTEROL 77 mg/dL (0-129)
[2018-04-08 07:50] LABS: ALB/GLOB RATIO 1.2 (1.0-2.1); ALBUMIN 3.2 g/dL (3.5-5.0); ALT/SGPT 27 U/L (9-52); AST/SGOT 19 U/L (14-36); BLOOD UREA NITROGEN 11 mg/dL (7-17); CALCIUM 7.5 mg/dl (8.6-10.4); GFR AFRICAN-AMERICAN > 60; GFR NON-AFRICAN AMERICAN > 60; HDL CHOLESTEROL 45 mg/dL (30-70)
[2018-04-08 08:52] LABS: FOLATE 10.7 ng/mL
--- NOTE | 2018-04-08 08:54 | HP ---
CHIEF COMPLAINT: Medicine overdose. HISTORY OF PRESENT ILLNESS: Ms. Bud Simons is a 28-year-old female brought to the emergency department by EMS with Xanax overdose. The patient reports taking five Xanax in an attempt to kill herself. When I interviewed her, her sister was sitting on the bedside. According to the patient, the patient is living with the grandmother. The patient states recently she had miscarriage. The patient states that she has been feeling depressed and was drowsy. In ER, a friend was sitting on the bedside. According to ER paper report where she got tested for, the patient asking her to bring the patient to the ED because she was feeling suicidal. When I entered the room, a sister was sitting on the bedside. The patient was sleepy, feeling depressed, suicidal thoughts, suicidal plan, is on one to one. No fever, no chills. No nausea, vomiting, or diarrhea. PAST MEDICAL HISTORY: Asthma, depression. SURGICAL HISTORY: Refused. FAMILY HISTORY: Father and mother, noncontributory. HABITS: Never smoked, no drug, no ethanol as per the patient. REVIEW OF SYSTEMS: The patient is sleepy, arousable, but not able to give review of systems. Looks like lethargic. No nausea or vomiting. No fever, no chills. No headache, no dizziness. PHYSICAL EXAMINATION: VITAL SIGNS: Temperature 98.6, pulse 98, blood pressure 122/77, respiratory rate 20. HEENT: Head, normocephalic, atraumatic. Eyes, PERRLA. Extraocular movements intact. Conjunctivae clear. Nose, patent. Mucous membranes moist. NECK: Supple. No carotid bruits, JVD, or thyromegaly. CHEST: Bilaterally symmetrical. HEART: S1 and S2 positive. LUNGS: Clear to auscultation. ABDOMEN: Soft. Bowel sounds present. No organomegaly. EXTREMITIES: No edema, no cyanosis. NEUROLOGIC: The patient is awake. The patient is sleepy, arousable. Obeys simple orders. LABORATORY DATA: White blood cell 7.9, hemoglobin 15, hematocrit 44.1, platelets 292. Sodium 142, potassium 3.6, BUN 8, creatinine 0.7. AST 30, ALT 28. Toxicology: Drug screening is negative. ASSESSMENT AND PLAN: Ms. Bud Simons is a 28-year-old lady with substance abuse, recently has miscarriage, history of asthma, depression, suicidal ideation, and suicidal plan. Vitals are stable. Observing the patient. Psych consult called with Dr. Rob Harris. Still waiting for the input. Consult was called at 00:24 a.m.. After all we do not have any notes. I will be giving IV fluid. Tested. Fall precautions. Gastrointestinal and deep venous thrombosis prophylaxis. Repeat labs. We will follow up. Pam Rubio MD
[2018-04-08 09:02] VITALS: O2SAT 98
[2018-04-08] MEDS: Multiple Vitamins Tab PO SCH (09:32)
--- NOTE | 2018-04-08 11:48 | PCM.PSYCH ---
Initial Psychiatric Evaluation - Initial Psychiatric Evaluation Type of Admission: Voluntary Legal Status: Capacity Chief Complaint (in patient's own words): "I was down" History of Present Illness and Precipitating Events: The patient is seen twice, chart reviewed and case discussed. Her aunt was with her second time and video games storywriter spoke with her with patient's permission. Consultation was requested because of patient's suicide attempt. This is a 28-year-old female, single with no child, unemployed, lives with her grandmother. She says she sometimes stays with her boyfriend who lives in the [place]. The patient attempted suicide with 5-6 Xanax tablets yesterday. She says that she was depressed about a [id number] miscarriage and , off which still lead to her was 7 weeks ago. She denies having plan to attempt and she feels happy that she is alive. She states that she knew she wouldn't and she currently denies any ideation, urge or plan. She denies using drugs or alcohol. She admits to having been depressed lately but denies manic, psychotic sxs. Past psych hx: Admitted to [facility] psych once in 2012 after another suicide attempt by OD. She was also with us in 2016 after another suicide attempt. Not seeing a dr or therapist outside and not on meds. Used Trazodone and Xanax in the past Family psych: Denied Medical: denied Current Medications: Active Medications Generic Name Dose Route Start Last Admin Trade Name Freq PRN Reason Stop Dose Admin Famotidine 40 mg 04/07/18 10:00 04/08/18 09:32 Pepcid PO 40 mg DAILY NICHOLAS Administration Sodium Chloride 1,000 mls @ 100 mls/hr 04/07/18 10:15 04/07/18 10:50 Sodium Chloride 0.9% IV 100 mls/hr .Q10H NICHOLAS Administration Multivitamins 1 tab 04/08/18 10:00 04/08/18 09:32 Hexavitamin PO 1 tab DAILY NICHOLAS Administration Pneumococcal Polyvalent Vaccine 0.5 ml 04/09/18 10:00 Pneumovax 23 Vaccine IM 04/09/18 10:01 .ONCE ONE Past Psychiatric History - Past Psychiatric History Previous Treatment History: Inpatient Pertinent Medical Hx (Current Medical&Sleep Prob, Allergies): Allergies Allergy/AdvReac Type Severity Reaction Status Date / Time No Known Allergies Allergy Verified 03/11/18 11:15 No Known Home Med 03/11/18 Review of Systems - Psychiatric Psychiatric: Abnormal Sleep Pattern, Anhedonia, Anxiety, Change in Appetite, Depression, Difficulty Concentrating. absent: Hallucinations, Homicidal Ideation, Paranoia, Suicidal Ideation Mental Status Examination - Personal Presentation Personal Presentation: Looks stated age - Affect Affect: Constricted - Motor Activity Motor Activity: Calm - Reliability in Providing Information Reliability in Providing Information: Good - Speech Speech: Organized - Mood Mood: Depressed, Anxious - Formal Thought Process Formal Thought Process: No Impairment - Cognitive Functions Orientation: Person, Place, Situation, Time Sensorium: Alert Attention/Concentration: Easily distracted Estimate of Intelligence: Average Judgement: Imparied, as evidence by: Poor judgement (Minimizing her attempt) Memory: Recent intact, as evidence by: Ability to recall events of the day, Remote intact, as evidenced by: Abilit to recall sig. life events - Risk Risk: Diminished functioning - Strength & Assets Inventory Strength & Assets Inventory: Family support, Cooperative - Limitations Limitations: Other DSM 5 DX - DSM 5 DSM 5 Diagnosis: Major depressive disorder, recurrent, severe, without psychotic features - Recommended/Plan of Treatment Treatment Recommendations and Plan of Treatment: Start Prozac for depression Trazodone for insomnia All risks, benefits and alternatives of the meds discussed, and the pt agreed and understood. Attend groups and activities Individual therapy daily Psychoeducation and support daily Encourage compliance with meds and after care Refer to outpatient program Teach healthy lifestyle methods, i.e. diet, exercise, meditation 38 min Projected ELOS: 2-3 days Prognosis: Good with good aftercare - Smoking Cessation Smoking Cessation Initiated: No Reason for not providing: Nonsmoker
--- NOTE | 2018-04-08 12:25 | CARD ---
APPROVED REPORT EKG Measurement Heart [id number] <Conclusion> Normal sinus rhythm Possible Left atrial enlargement Borderline ECG
--- NOTE | 2018-04-08 14:51 | PCM.BM ---
<Jerri Scott - Last Filed: 04/08/18 14:49> Treatment Plan Problems - Problems identified on initial assessmt Problem 1 Date Initiated: 04/08/18 Time Initiated: 14:50 Assessment reference: NA Status: Active Treatment assets and liabiliti Patient Assests: cooperative, educated, insightful, motivated, self-reliant, ADL independent, physically healthy, cognitively intact Patient Liabilities: live alone, relationship conflicts, other - Milieu Protocol Maintain good personal hygiene: daily Encourage regular showers, daily Remind patient to perform daily oral care, daily Assist patient to perform ADL's Conduct patient checks and document Observation sheet: Q15 minutes Maintain personal safety: every shift Educate patient to report safety concerns to staff, every shift Monitor environment for contraband/sharps Medication safety: Monitor for expected outcome, potential side effects: every shift, Assess barriers to learning: every shift, Assess readiness for medication education: every shift <Cindy Jovel - Last Filed: 04/09/18 12:10> Family Contact Family involvement: Family/SO is involved Family contact: Patient declines to allow family contact at present - Goals for Treatment Patient goals for treatment: "I want to go home." Discharge/Continuing Care - Education Needs Education Needs: Patient Medication, Patient Coping Skills - Discharge Discharge Criteria: Free of Suicidal thoughts, Reduction of target symptoms Discharge to:: Home - Treatment Team Participation Discussed with Family/SO: No Was Patient/Family/SO present at Treatment Team Meeting: Yes <Sabina Gillette - Last Filed: 04/10/18 12:16> - Diagnosis (1) Depression Status: Acute Interventions: 04/10/18 12:16 * Assess/adjust medications daily and /or as needed * See patient on an individual basis 7x/week to assess symptoms of depression * Monitor for side effects & effectiveness of medications *
[2018-04-09] MEDS: Sodium Chloride 0.9% 1,000 ML IV SCH (06:15)
[2018-04-09 06:17] VITALS: TEMP 97.6
[2018-04-09] MEDS: Multiple Vitamins Tab PO SCH (09:26)
[2018-04-09] MEDS ORDERED: Pneumococcal 23-Valent Vaccine IM ONE (10:00)
[2018-04-10 06:30] VITALS: RESP 18
[2018-04-10 09:11] VITALS: BP 113/72; PULSE 81
[2018-04-10] MEDS: Multiple Vitamins Tab PO SCH (10:32)
--- NOTE | 2018-04-10 12:17 | PCM.PYCHPN ---
Psychiatric Progress Note - Psychiatric Progress Note Patient seen today, length of contact: 19 min Patient Chief Complaint: "I am better" Problems Identified/Issues Discussed: The pt is seen, chart reviewed, case discussed with staff. The pt is compliant with medications and reports no side-effects. Symptoms are improving but needs more time to stabilize. After care discussed, support and psychoeducation given. Medication Change: Yes (increase prozac) Medical Record Reviewed: Yes Mental Status Examination - Cognitive Function Orientation: Person, Place, Situation, Time Memory: Intact Attention: WNL Concentration: Poor Association: WNL Fund of Knowledge: WNL - Mood Mood: Depressed, Anxious - Affect Affect: Constricted - Speech Speech: Appropriate - Formal Thought Process Formal Thought Process: No Impairment - Suicidal Ideation Suicidal Ideation: No - Homicidal Ideation Homicidal Ideation: No Goal/Treatment Plan - Goal/Treatment Plan Need for Continued Stay: Discharge may exacerbated symptoms, Severe functional impairment Progress Toward Problem(s) and Goals/Treatment Plan: Prozac for depression Trazodone for insomnia All risks, benefits and alternatives of the meds discussed, and the pt agreed and understood. Attend groups and activities Individual therapy daily Psychoeducation and support daily Encourage compliance with meds and after care Refer to outpatient program Teach healthy lifestyle methods, i.e. diet, exercise, meditation Estimated Date of D/C: 04/10/18
--- NOTE | 2018-04-10 12:18 | PCM.PYCHDC ---
Mental Status Examination - Mental Status Examination Orientation: Person, Place, Situation, Time Memory: Intact Mood: Anxious Affect: Constricted Speech: Appropriate Attention: WNL Concentration: WNL Association: WNL Fund of Knowledge: WNL Formal Thought Process: No Impairment Suicidal Ideation: No Current Homicidal Ideation?: No Discharge Summary - Discharge Note Reason for Hospitalization: Suicide attempt Consultations:: List each consultation separately and include: 1. Reason for request. 2. Findings. 3. Follow-up Summary of Hospital Course include:: 1. Description of specific treatment plan utilized for patients during their course of treatmen. 2. Summarize the time- course for resolution of acute symptoms and/or regressed behaviors. 3. Describe issues identified and worked on during hospitalization. 4. Describe medication utilized. 5. Describe medical problems identified and treated. 6. Reassessment of suicide risk Summary of Hospital Course: The patient is seen twice, chart reviewed and case discussed. On admission: Her aunt was with her second time and account underwriter spoke with her with patient's permission. This is a 28-year-old female, single with no child, unemployed, lives with her grandmother. She says she sometimes stays with her boyfriend who lives in the [place]. The patient attempted suicide with 5-6 Xanax tablets yesterday. She says that she was depressed about a [id number] miscarriage and , off which still lead to her was 7 weeks ago. She denies having plan to attempt and she feels happy that she is alive. She states that she knew she wouldn't and she currently denies any ideation, urge or plan. She denies using drugs or alcohol. She admits to having been depressed lately but denies manic, psychotic sxs. Past psych hx: Ad[place] [facility] [place] 2012 after another suicide attempt by OD. She was also with us in 2016 after another suicide attempt. Not seeing a dr or therapist outside and not on meds. Used Trazodone and Xanax in the past Family psych: Denied Medical: denied Hospital course: The pt was admitted to medicine but then transferred to psych. She is started on treatment with psychotherapy, support, psychoeducation and medications. CBT used. The pt attended groups and activities, as well as milieu therapy. All the risks and benefits of medications are discussed and the patient understood and agreed. The pt improved with the treatments provided. After care discussed with the patient. She left a day early per her request, but she was not commitable, and improved a lot. She will attend [facility] - Final Diagnosis (DSM 5) Condition upon Discharge: IMPROVED DSM 5: Major depressive disorder, recurrent, severe, without psychotic features Disposition: HOME/ ROUTINE Follow-up Treatment Plan: Continue below medications after discharge. Follow after care plan as discussed. Use relapse prevention skills Return to ER or call 911 if suicidal, homicidal or symptoms relapse. Stay away from stress, alcohol and drugs. See primary doctor regularly and get labs. Prescriptions/Medication Reconciliation: Famotidine [Pepcid] 40 mg PO DAILY #30 tab FLUoxetine [Prozac] 20 mg PO DAILY #30 cap traZODone [Desyrel] 50 mg PO HS PRN #30 tab PRN Reason: Insomnia - Smoking Cessation Smoking Cessation Medication prescribed: No - Antipsychotic Medications Pt discharged on 2 or more routine antipsychotic medications: No
== END 2018-04-10 13:00 | disposition home or self-care (01) | DRG 449 ==
LOC: C.ER 21:38 → C.9E 04-07 00:24 → C.3T 04-07 01:01 → C.5E 04-08 14:22
PROVIDERS: ADMIT Psychiatry & Neurology Psychiatry; ATTEND Psychiatry & Neurology Psychiatry
PROC: GZHZZZZ Group Psychotherapy (ICD-10-PCS; principal; 2018-04-07)
PROC: GZ58ZZZ Individual Psychotherapy, Cognitive-Behavioral (ICD-10-PCS; 2018-04-07)
PROC: GZ56ZZZ Individual Psychotherapy, Supportive (ICD-10-PCS; 2018-04-07)
DX: T42.4X2A Poisoning by benzodiazepines, intentional self-harm, initial encounter (principal); F33.2 Major depressive disorder, recurrent severe without psychotic features; R40.0 Somnolence; G47.00 Insomnia, unspecified; J45.909 Unspecified asthma, uncomplicated; N96 Recurrent pregnancy loss

== ENCOUNTER 2019-01-17 19:16 | Emergency (ER) | payer MEDICAID ==
[2019-01-17 19:16] VITALS: BMI 27.6
[2019-01-17 19:34] VITALS: BP 122/87; PULSE 98; RESP 20; TEMP 98.4; O2SAT 100
[2019-01-17] MEDS ORDERED: Sodium Chloride 0.9% 1,000 ML IV ONE (19:50)
[2019-01-17 20:08] LABS: BASO # 0.1 K/uL (0.0-0.2); BASO % 0.7 % (0.0-2.0); EOS # 0.2 K/uL (0.0-0.7); EOS % 2.5 % (0.0-4.0); LYMPH # 1.4 K/uL (1.0-4.3); LYMPH % 16.2 % (20.0-40.0); MEAN CORPUSCULAR HEMOGLOBIN 29.4 pg (27.0-31.0); MEAN CORPUSCULAR HGB CONC 33.8 g/dL (33.0-37.0); MEAN PLATELET VOLUME 7.7 fL (7.2-11.7); MONO # 0.5 K/uL (0.0-0.8); MONO % 6.4 % (0.0-10.0); NEUT # 6.2 K/uL (1.8-7.0); NEUT % 74.2 % (50.0-75.0); RBC 4.76 Mil/uL (3.80-5.20); RED CELL DISTRIBUTION WIDTH 13.1 % (11.5-14.5); WHITE BLOOD COUNT 8.3 K/uL (4.8-10.8)
[2019-01-17 20:20] LABS: ALB/GLOB RATIO 1.4 (1.0-2.1); ALBUMIN 4.4 g/dL (3.5-5.0); ALT/SGPT 13 U/L (9-52); AST/SGOT 25 U/L (14-36); BLOOD UREA NITROGEN 12 mg/dL (7-17); CALCIUM 9.7 mg/dl (8.6-10.4); GFR NON-AFRICAN AMERICAN > 60
--- NOTE | 2019-01-18 03:31 | C.PDOC ---
History Of Present Illness 29-year-old female presents to the emergency department with complaints of migraine for the past three weeks. Patient states that she took Motrin and Aleve a few days ago with no relief and has not taken anything since. Patient states that her headache is not the worst of her life but reports positive photophobia and phonophobia. Patient denies recent travel and sick contact. Chief Complaint (Nursing): Headache History Per: Patient History/Exam Limitations: no limitations Onset/Duration Of Symptoms: Other (3 weeks) Quality: "Pain" Associated Symptoms: Photophobia, Other (phonophobia) Recent travel outside of the [place]: No Past Medical History Reviewed: Historical Data, Nursing Documentation, Vital Signs Vital Signs: Last Vital Signs Temp 98.4 F 01/17/19 19:27 Pulse 98 H 01/17/19 19:27 Resp 20 01/17/19 19:27 BP 122/87 01/17/19 19:27 Pulse Ox 100 01/17/19 19:27 - Medical History PMH: Asthma (childhood), Depression Denies: Diabetes, Hepatitis, HIV, HTN, Chronic Kidney Disease, Seizures, Sexually Transmitted Disease Surgical History: No Surg Hx - [facility] Procedures GROUP PSYCHOTHERAPY (04/07/18) INDIVIDUAL PSYCHOTHERAPY, COGNITIVE-BEHAVIORAL (04/07/18) INDIVIDUAL PSYCHOTHERAPY, SUPPORTIVE (04/07/18) MEDICATION MANAGEMENT (02/29/16) Family History: States: No Known Family Hx - Social History Hx Tobacco Use: No Hx Alcohol Use: Yes Hx Substance Use: No - Immunization History Hx Tetanus Toxoid Vaccination: No Hx Influenza Vaccination: No Hx Pneumococcal Vaccination: No Review Of Systems Except As Marked, All Systems Reviewed And Found Negative. Constitutional: Negative for: Fever, Chills, Weakness Eyes: Positive for: Other (photophobia) ENT: Positive for: Other (phonophobia) Cardiovascular: Negative for: Chest Pain Respiratory: Negative for: Cough, Shortness of Breath Gastrointestinal: Negative for: Nausea, Vomiting, Abdominal Pain, Diarrhea Neurological: Positive for: Headache Physical Exam - Physical Exam Appears: Non-toxic, No Acute Distress Skin: Normal Color, Warm, Dry Head: Atraumatic, Normacephalic Eye(s): bilateral: Normal Inspection, PERRL, EOMI Ear(s): Bilateral: Normal Nose: Normal Oral Mucosa: Moist Neck: Normal, Supple Chest: Symmetrical, No Tenderness Cardiovascular: Rhythm Regular, No Murmur Respiratory: Normal Breath Sounds, No Rales, No Rhonchi, No Wheezing Gastrointestinal/Abdominal: Soft, No Tenderness, No Guarding, No Rebound Extremity: Normal ROM Neurological/Psych: Oriented x3, Normal Speech, Normal Cognition ED Course And Treatment - Laboratory Results Result Diagrams: 01/17/19 20:05 01/17/19 20:05 Lab Results: Total Bilirubin 0.4 mg/dL (0.2-1.3) 01/17/19 20:05 AST 25 U/L (14-36) 01/17/19 20:05 ALT 13 U/L (9-52) 01/17/19 20:05 Alkaline Phosphatase 56 U/L (38-126) 01/17/19 20:05 Total Protein 7.5 g/dL (6.3-8.3) 01/17/19 20:05 Albumin 4.4 g/dL (3.5-5.0) 01/17/19 20:05 Globulin 3.1 gm/dL (2.2-3.9) 01/17/19 20:05 Albumin/Globulin Ratio 1.4 (1.0-2.1) 01/17/19 20:05 O2 Sat by Pulse Oximetry: 100 (RA) Pulse Ox Interpretation: Normal Medical Decision Making Medical Decision Making: Plan: CMP CBC Reglan 10mg IVP NaCl IV Fluids Toradol 30mg IVP Patient cannot be found in ED, pulled out her IV and eloped. Disposition - Disposition Disposition: ELOPEMENT - ER ONLY Disposition Time: 20:30 Condition: GOOD Forms: [facility] (Malay) - Clinical Impression Clinical Impression: Migraine - Scribe Statement The provider has reviewed the documentation as recorded by the Scribe (Mil Young) Provider Attestation: All medical record entries made by the Scribe were at my direction and personally dictated by me. I have reviewed the chart and agree that the record accurately reflects my personal performance of the history, physical exam, medical decision making, and the department course for this patient. I have also personally directed, reviewed, and agree with the discharge instructions and disposition.
== END 2019-01-17 20:50 | disposition left against medical advice (07) ==
LOC: C.ER 19:16
DX: G43.909 Migraine, unspecified, not intractable, without status migrainosus (principal)
CPT/HCPCS: 80053; 85025; 96374; 96375; 99284; J1885; J2765; J7030